=== PATIENT | male | born 1965 | race Caucasian/White ===

== ENCOUNTER → 2020-10-26 | Outpatient (CLI) | payer BC ==
[2020-10-26 13:18] LABS: HEMOGLOBIN 15.4 gm/dl (14.0-17.5); RED BLOOD COUNT 4.97 M/UL (4.20-5.50); WHITE BLOOD COUNT 4.9 K/UL (4.5-11.0)
[2020-10-26 14:13] LABS: BUN/CREATININE RATIO 15 (0-10)
[2020-10-27 09:13] LABS: PROSTATE SPECIFIC AG, SERUM 1.4 ng/mL (0.0-4.0); VITAMIN D, 25-HYDROXY 40.7 ng/mL (30.0-100.0)
== END ==
LOC: LAB 11:54
PROVIDERS: Nurse Practitioner
DX: Z13.1 Encounter for screening for diabetes mellitus (principal); I10 Essential (primary) hypertension; E55.9 Vitamin D deficiency, unspecified; N40.0 Benign prostatic hyperplasia without lower urinary tract symptoms
CPT/HCPCS: 36415; 80053; 80061; 83036; 84153; 84154; 84443; 85025

== ENCOUNTER → 2021-04-12 | Outpatient (CLI) | payer BC | LOC: RAD 08:33 | DX: S43.431A Superior glenoid labrum lesion of right shoulder, initial encounter (principal) | CPT/HCPCS: 73040; 73222; Q9967 ==